=== PATIENT | female | born 1970 | race Caucasian/White ===

== ENCOUNTER 2017-10-19 14:03 | Observation (INO) ==
--- NOTE | 2017-10-19 14:31 | Emergency Department Note ---
Disposition Clinical Impression: Chest pain Qualifiers: Chest pain type: unspecified Qualified Code(s): R07.9 - Chest pain, unspecified Disposition: Admitted As Inpatient Condition: Fair Time of Disposition: 19:06 Chest Pain HPI - General Chief Complaint: ED Chest Pain Stated Complaint: CP Time Seen by Provider: 10/19/17 14:06 Source: patient Mode of arrival: ambulatory Limitations: no limitations Vital Signs Reviewed: Yes Nursing Notes Reviewed: Yes - History of Present Illness HPI Narrative: Patient is a 47-year-old female who presents to [facility] ED with a chief complaint of chest pain since 11:30a.m. She was sent over from [facility] with concern for STEMI. STEMI alert was canceled prior to patient's arrival to our emergency department. Upon evaluation, patient states she still has dull and sharp chest pain 8 out of 10. This is reproducible upon palpation. Patient states she had open heart surgery at the age of 4 and had a pig valve replaced. She also states she had a minor heart attack approximately 3 years ago. No stents were needed at that time. Patient is a nonsmoker. Denies any nausea, vomiting, recent illnesses. No difficulty breathing, problems with urination or bowel movements. Pt complaint: chest pain Onset (ago): hour(s) Duration: constant Onset: during rest Pain Location: left chest, epigastric Severity: severe Severity scale (1-10): 8 Quality: heaviness, sharp Pain Radiation: none Improves with: nothing Worsens with: nothing Associated symptoms: Denies: nausea, vomiting, dyspnea, syncope, fever Treatments prior to arrival chest pain: aspirin, nitroglycerin - Related Data Home Medications Medication Instructions Recorded Confirmed Aspirin [Adult Low Dose Aspirin EC] 81 mg PO DAILY 09/26/15 10/19/17 BuPROPion [Wellbutrin] 75 mg PO DAILY 10/19/17 10/19/17 Calcium Carbonate/Vitamin D3 1 each PO DAILY 10/19/17 10/19/17 [Calcium 500-Vit D3 200 Tablet] Medroxyprogesterone Acetate 150 mg IM [id number] 10/19/17 10/19/17 [DEPO-Provera] Metoprolol XL (24 HR) Succ [Toprol 12.5 mg PO DAILY 10/19/17 10/19/17 XL] Omeprazole [PriLOSEC] 20 mg PO DAILY 10/19/17 10/19/17 Sertraline [Zoloft] 100 mg PO BID 10/19/17 10/19/17 Allergies Allergy/AdvReac Type Severity Reaction Status Date / Time codeine Allergy Nausea Verified 12/10/16 19:14 Penicillins Allergy Nausea Verified 12/10/16 19:14 acetaminophen [From Tylenol] AdvReac Nausea/Hive Verified 10/19/17 17:03 s All systems ED: reviewed and negative except as stated. 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) Psychiatric history: Reports: anxiety, bipolar, depression CHILD DAY CARE PROVIDER history: Reports: no CHILD DAY CARE PROVIDER history - Social History Smoking Status: Never smoker Alcohol use: Reports: occasionally Drug use: Reports: none Physical Exam - General General appearance: alert, in no apparent distress - Head Head exam: atraumatic, normocephalic, normal inspection - Eye Eye exam: Present: normal appearance, EOMI - ENT ENT exam: normal exam, normal oropharynx, mucous membranes moist - Neck Neck exam: Present: normal inspection, full ROM, trachea midline - Chest Chest inspection: Present: normal inspection, symmetric chest wall rise, tenderness - Respiratory Respiratory exam: Present: normal lung sounds bilaterally - Cardiovascular Cardiovascular exam: Present: regular rate, normal rhythm, normal heart sounds - Abdominal Exam Abdominal exam: Present: soft, tenderness. Absent: distention, guarding, rebound, rigidity Abdominal tenderness: Present: epigastrium, moderate - Extremities Exam Extremities exam: Present: normal inspection, full ROM. Absent: tenderness, pedal edema - Back Exam Back exam: Present: normal inspection, full ROM. Absent: tenderness - Neurological Exam Neurological exam: Present: alert - Psychiatric Psychiatric exam: Present: normal affect, normal mood - Skin Skin exam: Present: warm, dry, intact, normal color Course Course Narrative: Patient seen and examined. Due to the sharp sudden nature of her pain, decision was made to order a CTA of the chest and abdomen/pelvis to rule out aortic dissection. Heparin and nitroglycerin drip were stopped upon patient's arrival to the emergency department. Motrin was given to help with her headache. - Reevaluation(s) Reevaluation #1: CTA of the chest, abdomen and pelvis negative for any acute findings. Patient continues to have 8 out of 10 chest pain. I discussed the case with gps navigation installer Dr. Lindo who states she does not feel there is any intervention to do at this time. Goal would be to treat her pain. I restarted the nitroglycerin drip. We will repeat a troponin level. I discussed this case with hospitalist Dr. Leo who has accepted patient for admission. Time: 19:05 Vital Signs Temperature 98.6 F 10/19/17 14:04 Pulse Rate 81 10/19/17 14:04 Respiratory Rate 16 10/19/17 14:04 Blood Pressure 127/75 10/19/17 14:04 O2 Sat by Pulse Oximetry 100 10/19/17 14:04 Temperature 98.6 F 10/19/17 14:04 Pulse Rate 89 10/19/17 19:00 Respiratory Rate 16 10/19/17 19:00 Blood Pressure 115/73 10/19/17 19:00 O2 Sat by Pulse Oximetry 98 10/19/17 19:00 Oxygen Delivery Oxygen Delivery Room Air Chest Pain - Medical Records Medical records reviewed: Yes I reviewed the patient's medical records. - Lab Data Lab results reviewed: Yes I reviewed the patient's lab results. - Radiology Data Radiology results reviewed: Yes I reviewed the patient's radiology results. Abdomen/Pelvis CTA 10/19/17 14:43 IMPRESSION: No CT evidence of aortic dissection. No acute intrathoracic nor abdominal abnormality. At least moderate wall thickening and increased mucosal enhancement of the urinary bladder and prominence of the cervix which is hypervascular as well. Correlation for cystitis and/or cervicitis is recommended. Follow-up to exclude neoplasm, particularly of the cervix, is recommended. D/ / Lakia Baron Cha, MD / Lakia Baron Cha, MD Interpreting Provider: Lakia Baron Cha, MD Chest CTA 10/19/17 14:43 IMPRESSION: No CT evidence of aortic dissection. No acute intrathoracic nor abdominal abnormality. At least moderate wall thickening and increased mucosal enhancement of the urinary bladder and prominence of the cervix which is hypervascular as well. Correlation for cystitis and/or cervicitis is recommended. Follow-up to exclude neoplasm, particularly of the cervix, is recommended. D/ / Lakia Baron Cha, MD / Lakia Baron Cha, MD Interpreting Provider: Lakia Baron Cha, MD - EKG Data EKG attestation: Yes I reviewed and interpreted this EKG. EKG results narrative: EKG done at 1412 shows normal sinus rhythm with a rate of [address] elevation or depression. Right bundle branch block present. Inverted T waves in leads V1 and V2. Left axis deviation. Appears unchanged from prior EKG done 09/30/2015. Heart Score - Score History: Moderately Suspicious EKG: Non Specific repolarisation Disturbance Age: 45-65 Risk Factors: 1-2 risk factors Troponin: Less than normal limit HEART Score Total: 4
[2017-10-19] MEDS: Acetaminophen 325 MG TABLET PO ONE ×2 (15:10→15:30)
[2017-10-19] MEDS ORDERED: Ibuprofen 800 MG TABLET PO ONE (15:11)
--- NOTE | 2017-10-19 16:58 | Emergency Department Note ---
START Narrative - START START: I examined this patient and my medical decision-making was reviewed with the Resident Physician. I agree with the documented findings, disposition and treatment plan as described except to the extent set forth below. 47 year old stuart presents to the ED from [place] as a cancelled STEMI alert. Her chest pain started around 1130 today and it radiates into her back with nausea, diaphoresis, nad exertiona ldyspne althouhg patient does not have any risk factors for CAD. HEr last sstress test was movre than 5 years ago and no history of cardaic catherization. CTA chest /abdome to rule out PE and dissection. WE will admit to medicine once ruled out.
[2017-10-19] MEDS ORDERED: Nitroglycerin 25 MG/250 ML INFUS..BTL IVC SCH (17:15)
[2017-10-19] MEDS ORDERED: 0.9 % Sodium Chloride 1,000 ML ONE (17:50)
[2017-10-19] MEDS ORDERED: *HR* Morphine 2 MG/ML SYRINGE IVP ONE (18:46)
--- NOTE | 2017-10-19 21:01 | Internal Med History&Physical ---
<Sinan Latif P - Last Filed: 10/19/17 23:50> Date of Encounter: 10/19/17 Internal Medicine - H&P: HPI History of present illness: Ms. Willis is a 47 year old female Internal Medicine - H&P: Meds Aspirin [Adult Low Dose Aspirin EC] 81 mg PO DAILY 09/26/15 [History] BuPROPion [Wellbutrin] 75 mg PO DAILY 10/19/17 [History] Calcium Carbonate/Vitamin D3 [Calcium 500-Vit D3 200 Tablet] 1 each PO DAILY [History] Medroxyprogesterone Acetate [DEPO-Provera] 150 mg IM [id number] 10/19/17 [History] Metoprolol XL (24 HR) Succ [Toprol XL] 12.5 mg PO DAILY 10/19/17 [History] Omeprazole [PriLOSEC] 20 mg PO DAILY 10/19/17 [History] Sertraline [Zoloft] 100 mg PO BID 10/19/17 [History] 3 Allergy/AdvReac Type Severity Reaction Status Date / Time codeine Allergy Nausea Verified 12/10/16 19:14 Penicillins Allergy Nausea Verified 12/10/16 19:14 acetaminophen [From Tylenol] AdvReac Nausea/Hive Verified 10/19/17 17:03 s All Systems PM: A 10-system review of systems was performed and is negative for pertinent findings except as documented above in the HPI. - Constitutional Vitals: Temp Pulse Resp BP Pulse Ox 98.8 F 84 17 111/70 98 10/19/17 20:24 10/19/17 20:24 10/19/17 20:24 10/19/17 20:24 10/19/17 20:29 Internal Med - H&P Results - Labs Labs: Cardiac Enzymes 10/19/17 Range/Units 18:57 Troponin I < 0.03 (< 0.04) ng/mL - Attending Attestation I examined this patient and my medical decision-making was reviewed with the Resident Physician. I agree with the documented findings, disposition and treatment plan as described except to the extent set forth below. I have examined this patient in person. This patient was examined before midnight. I agree with the assessment and plan drawn by the resident physician. Patient needs cardiac evaluation tomorrow. If cardiac workup is negative then please consider outpatient EGD. <Latha Mcclendon - Last Filed: 10/20/17 06:07> Date of Encounter: 10/20/17 Time of Encounter: 20:00 Assessment and Plan (1) Chest pain Current visit: Yes Status: Acute Troponin <0.03 initially. EKG shows sinus rhythm with RBB, no acute ST elevations or depressions--EKG similar to previous done 09/30/15. Chest CTA negative for aortic dissection and for acute intrathoracic abnormalities. [place] CXR negative for acute cardiopulmonary processes, no pleural effusion or pneumothorax. MARRY risk score of 1 for UA/NSTEMI. HEART score of 3, low risk for adverse cardiac event. Currently on nitroglycerin drip. -Trend troponins q6hr -CBC and BMP morning labs -Repeat CXR to rule out pulmonary effusion, pulmonary edema -Pharmacologic stress test pending -Echocardiogram pending -Continue ASA and beta hal; statin started Qualifiers: Chest pain type: other chest pain Qualified Code(s): R07.89 - Other chest pain; R07.8 - Other chest pain (2) DVT prophylaxis Current visit: Yes Status: Acute Heparin 5,000 units SubQ q12h Internal Medicine - H&P: HPI Chief complaint: abdominal pain Admitted From: Emergency Dept History of present illness: Ms. Willis is a 47 year old female with PMH of [place] without cath or stent placement, congenital heart disease, valvular heart disease, and TIA x4 who was transferred from [place] as a STEMI after presenting with chest pain (STEMI alert cancelled prior to arrival at [facility] ED). Patients chest pain, described as stabbing and pressure-like, began shortly after an episode of sharp pain in lower abdomen around 11:30 AM after walking from kitchen; chest pain located substernally and in left chest. Chest pain was not worse with exertion and was relieved with rest; nitroglycerin wasnt helpful. EKG negative for acute ST elevation or depression and shows RBBB, appears unchanged from previous EKG on . CXR done at [place] negative for acute cardiopulmonary processes. Chest CTA negative for acute intrathoracic abnormality and no evidence of aortic dissection; CTA abdomen pelvis negative for acute intrabdominal abnormality. Patient denies associated shortness of breath, heart palpitations, diarrhea, or constipation; admits to diaphoresis, nausea, left arm numbness and tingling, and 3 episodes emesis. Past Med Surg Social Fam HX - Past Medical History Source: patient Medical history: arthritis, coronary artery disease, myocardial infarction, syncope, TIA (x4), valvular heart disease, other (congenital heart disease) Psychiatric history: anxiety, bipolar, depression - Past Surgical History Surgical History: cholecystectomy, other (D&C) - Social History Smoking Status: Never smoker Smokeless Tobacco Status: No Alcohol use: occasionally Drug use: none All Systems PM: A 10-system review of systems was performed and is negative for pertinent findings except as documented above in the HPI. - Constitutional Constitutional: no fever(s) - Cardiovascular Cardiovascular ROS IM: as per HPI, chest pain (stabbing, pressure), diaphoresis , no dyspnea, no edema, no palpitations - Respiratory Respiratory: no cough, no dyspnea, no wheezing - Gastrointestinal Gastrointestinal: abdominal pain (sharp pain, lower quadrants), nausea, vomiting (3 episodes), no change in bowel habits, no coffee ground emesis, no constipation, no diarrhea - Neurological Neurological ROS: headache(s) - Constitutional Vitals: Temp Pulse Resp BP Pulse Ox 98.8 F 84 17 111/70 98 10/19/17 20:24 10/19/17 20:24 10/19/17 20:24 10/19/17 20:24 10/19/17 20:29 General appearance: Present: A&O X 3, no acute distress, answers questions appropriately - Head Head exam: Present: atraumatic, normocephalic - Eye Eye exam: Present: EOMI, PERRL - Neck Neck exam general surgery: Present: full ROM, supple - Respiratory Respiratory exam: Present: CTAB. Absent: chest wall tenderness - Cardiovascular Cardiovascular exam: Present: RRR, +S1, +S2 Additional comments: no murmur - GI/Abdominal GI/Abdominal exam: Present: normal bowel sounds, soft, no peritoneal signs. Absent: distended, tenderness - Extremities Exam Extremities exam: Present: warm. Absent: pedal edema Additional comments: DP pulses present and equal - Back Exam Back exam: Present: normal inspection - Neurological Exam Neurological exam: Present: alert, oriented X3, no focal deficits Internal Med - H&P Results - Labs CBC & Chem 7: 10/20/17 03:11 10/20/17 01:32 Labs: Cardiac Enzymes 10/19/17 Range/Units 18:57 Troponin I < 0.03 (< 0.04) ng/mL
[2017-10-20] MEDS: Ibuprofen 400 MG TABLET PO PRN ×3 (01:50→21:16)
[2017-10-20 02:01] LABS: BUN/Creatinine Ratio 20 (6-26); Blood Urea Nitrogen 10 mg/dL (6-20); Calcium 8.4 mg/dL (8.6-10.3); Carbon Dioxide 20 mEq/L (23-29); Chloride 112 mEq/L (98-107); Glucose 96 mg/dL (70-105); Osmolality,Calculated 287 (280-300); Potassium 3.5 mEq/L (3.5-5.1); Sodium 139 mEq/L (136-145); eGFR For African Americans > 60 (> 60); eGFR For Non-African Americans > 60 (> 60)
[2017-10-20 03:36] LABS: Hematocrit 33.7 % (35.3-44.9); Hemoglobin 11.3 g/dL (11.5-15.4); Mean Corpuscular HGB Conc 33.5 g/dL (31.6-35.5); Mean Corpuscular Hemoglobin 30.3 pg (28.0-33.3); Mean Corpuscular Volume 90.3 fL (83.0-100.0); Mean Platelet Volume 10.5 fL (9.4-12.4); Platelet Count 186 K/mcL (140-400); Red Blood Count 3.73 M/mcL (3.82-4.97); Red Cell Distribution Width 12.2 % (11.5-14.5)
[2017-10-20] MEDS ORDERED: Ketorolac 15 MG/ML VIAL IVP ONE (06:09)
[2017-10-20] MEDS: *HR* Heparin 5,000 UNIT/ML VIAL SQ SCH ×2 (06:24→18:18)
--- NOTE | 2017-10-20 09:19 | Electrocardiograph Report ---
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
[2017-10-20] MEDS: Aspirin 81 MG TAB.CHEW PO SCH (10:24)
--- NOTE | 2017-10-20 15:22 | Cardiology Consult Note ---
<Diana Dewey - Last Filed: 10/20/17 15:16> Date of Encounter: 10/20/17 Time of Encounter: 15:00 Assessment and Plan (1) Chest pain Current Visit: Yes Status: Acute Per cardiology: -Admitted after one episode of chest pain at rest. Patient states this was during stressful event with children fighting. -Denies exertional symptoms. -Denies current chest pain. -ECG with RBBB noted, unchanged from previous. -Troponins negative x3. -Stress 09/2015 negative. -TTE 09/2015 with LVEF 65%, no segmental wall motion abnormalities noted. -On asa, statin. -Will add low dose beta hal. -Anticipate cardiology sign off. -Can consider outpatient ischemic work up for recurrence of symptoms. Qualifiers: Chest pain type: other chest pain Qualified Code(s): R07.89 - Other chest pain; R07.8 - Other chest pain (2) History of congenital heart disease Current Visit: No Status: Chronic Per cardiology: -Patient has a history of aortic septal defect and pulmonic valve stenosis. As a child, she underwent repair of ASD, pulmonic valvotomy and patch repair of resected infundibulum. -Last TTE with LVEF 65%, moderate diastolic dysfunction, mildly dilated left atrium, mildly calcified mitral valve leaflets, mild anterior mitral leaflet prolapse, mild MR, no segmental wall motion abnormalities. -Patient follows with [facility]. (3) Anemia Current Visit: Yes Status: Acute Per cardiology: -Hemoglobin 11.3. -Baseline HGB 13-15s. -Management per primary service. Qualifiers: Anemia type: unspecified type Qualified Code(s): D64.9 - Anemia, unspecified Discussion w patient/family: The assessment and plan as outlined above was discussed with the patient who expressed understanding and agreement. All questions were answered. Thank you for involving us in the care of your patient. Please call with any questions. Discussed and reviewed with . History of Present Illness Consult date: 10/20/17 Requesting physician: Ana Lilia Foster Consult reason: chest pain Chief complaint: abdominal pain, chest pain History of present illness: Ms. Willis is a 47 year old female with a relevant past medical history of congenital heart disease, diastolic dysfunction, seizures, anxiety, depression. Patient presented to [place] [facility] with complaints of abdominal pain , diaphoresis, and chest pain. Patient states that symptoms started at rest while her kids were fighting. Patient states prior to this single episode yesterday, had not been having any symptoms. Denies exertional chest pain or shortness of breath. Denies increased fatigue. Past Med Surg Social Fam HX - Past Medical History Attestation: Yes The following information was validated with the patient. Source: patient, old records reviewed Medical history: arthritis, myocardial infarction, syncope, TIA (x4), valvular heart disease, other (congenital heart disease) Psychiatric history: anxiety, bipolar, depression - Past Surgical History Surgical History: cholecystectomy, other (D&C) - Social History Smoking Status: Never smoker Smokeless Tobacco Status: No Alcohol use: occasionally Drug use: none Medications and Allergies Aspirin [Adult Low Dose Aspirin EC] 81 mg PO DAILY 09/26/15 [History] BuPROPion [Wellbutrin] 75 mg PO DAILY 10/19/17 [History] Calcium Carbonate/Vitamin D3 [Calcium 500-Vit D3 200 Tablet] 1 each PO DAILY [History] Medroxyprogesterone Acetate [DEPO-Provera] 150 mg IM [id number] 10/19/17 [History] Metoprolol XL (24 HR) Succ [Toprol XL] 12.5 mg PO DAILY 10/19/17 [History] Omeprazole [PriLOSEC] 20 mg PO DAILY 10/19/17 [History] Sertraline [Zoloft] 100 mg PO BID 10/19/17 [History] 3 Allergy/AdvReac Type Severity Reaction Status Date / Time codeine Allergy Nausea Verified 12/10/16 19:14 Penicillins Allergy Nausea Verified 12/10/16 19:14 acetaminophen [From Tylenol] AdvReac Nausea/Hive Verified 10/19/17 17:03 s All Systems Review: A 10-system review of systems was performed and is negative for pertinent findings except as documented above in the HPI. - Cardiovascular Cardiovascular: as per HPI, chest pain at rest, diaphoresis - Gastrointestinal Gastrointestinal: abdominal pain Physical Examination Vital Signs Temperature 98.6 F 10/19/17 14:04 Pulse Rate 81 10/19/17 14:04 Respiratory Rate 16 10/19/17 14:04 Blood Pressure 127/75 10/19/17 14:04 O2 Sat by Pulse Oximetry 100 10/19/17 14:04 Temperature 98.9 F 10/20/17 10:56 Pulse Rate 67 10/20/17 10:56 Respiratory Rate 16 10/20/17 10:56 Blood Pressure 110/67 10/20/17 10:56 O2 Sat by Pulse Oximetry 96 10/20/17 10:56 Oxygen Delivery Oxygen Delivery Room Air General: Conversant, No Apparent Distress HEENT: Atraumatic, Normocephaly, Mucus Membranes Moist Neck: No JVD, Normal carotid pulses Cardiac: Reg Rate and Rhythm, Normal S1 and S2, No Murmur Lungs: Normal Breath Sounds, No Wheeze, Rales, Rhonchi Neuro: Alert and responsive, No focal deficits noted Abdomen: Soft, Non-Tender Skin: No rashes noted on visualized skin Musculoskeletal: No Chest Wall Tenderness Extremities: No Clubbing, No Cyanosis, No Edema, Normal Pulses Results 10/20/17 03:11 10/20/17 01:32 Lab Results Impressions Abdomen/Pelvis CTA 10/19/17 14:43 IMPRESSION: No CT evidence of aortic dissection. No acute intrathoracic nor abdominal abnormality. At least moderate wall thickening and increased mucosal enhancement of the urinary bladder and prominence of the cervix which is hypervascular as well. Correlation for cystitis and/or cervicitis is recommended. Follow-up to exclude neoplasm, particularly of the cervix, is recommended. D/ / Lakia Baron Cha, MD / Lakia Baron Cha, MD Interpreting Provider: Lakia Baron Cha, MD Chest CTA 10/19/17 14:43 IMPRESSION: No CT evidence of aortic dissection. No acute intrathoracic nor abdominal abnormality. At least moderate wall thickening and increased mucosal enhancement of the urinary bladder and prominence of the cervix which is hypervascular as well. Correlation for cystitis and/or cervicitis is recommended. Follow-up to exclude neoplasm, particularly of the cervix, is recommended. D/ / Lakia Baron Cha, MD / Lakia Baron Cha, MD Interpreting Provider: Lakia Baron Cha, MD Chest X-Ray 10/20/17 00:23 IMPRESSION: No acute cardiopulmonary abnormality. D/ / Mike Moss MD / Mike Moss MD Interpreting Provider: Mike Moss MD Active Medications Aspirin (Aspirin) 81 mg PO DAILY IRENE Stop: 04/21/18 09:01 Last Admin: 10/20/17 10:24 Dose: 81 mg Heparin Sodium (Porcine) (Heparin) 5,000 unit SQ Q12HCO IRENE Stop: 04/21/18 06:01 Last Admin: 10/20/17 06:24 Dose: 5,000 unit Ibuprofen (Motrin) 400 mg PO Q4HR PRN PRN Reason: Headache Stop: 04/20/18 23:06 Last Admin: 10/20/17 14:49 Dose: 400 mg Rosuvastatin Calcium (Crestor) 20 mg PO HS IRENE Stop: 04/21/18 01:01 Last Admin: 10/20/17 01:50 Dose: 20 mg Laboratory Tests 09/30/16 10/19/17 10/19/17 14:20 12:50 18:57 Hgb 15.6 H 14.1 Creatinine Troponin I < 0.03 10/20/17 10/20/17 10/20/17 01:32 01:32 03:11 Hgb 11.3 L D Creatinine 0.51 L Troponin I < 0.03 10/20/17 06:59 Hgb Creatinine Troponin I < 0.03 - Imaging and Cardiology Chest Xray: report reviewed Stress Test: report reviewed Echo: pending, report reviewed - EKG Interpretation EKG results cardiology: personally reviewed (ECG with SR, RBBB.), other ( Telemetry reviewed with average HR previous 12 hours noted to be 71, SR. PACs noted. Short runs of atrial tachycardia noted.) Consult Discharge Plan - Plan Referrals: Jayden Regalado CARE PROVIDER [Primary Care Provider] - <Malu Lindo - Last Filed: 10/20/17 17:24> Date of Encounter: 10/20/17 - Attending Attestation I examined this patient and my medical decision-making was reviewed with the CARE PROVIDER. I agree with the documented findings, disposition and treatment plan as described. Ms. Willis presents with atypical chest pain in setting of a stressful event. She has been chest pain free since admission. ECG unchanged from prior - no acute findings. Troponin negative x3. TTE showed normal LVEF. No further cardiac testing is warranted at this time. Of note, Hgb decreased from 14.1 to 11.3 - will defer management to primary team. Patient denies bleeding events or heavy menstruation. Will sign off. Recommend follow up as outpatient. Assessment and Plan Discussion w patient/family: The assessment and plan as outlined above was discussed with the patient and/or family members who expressed understanding and agreement. All questions were answered. Thank you for involving us in the care of your patient. Please call with any questions. History of Present Illness History of present illness: Ms. Willis is a 47 year old female All Systems Review: A 10-system review of systems was performed and is negative for pertinent findings except as documented above in the HPI. Physical Examination Vital Signs, Last 4 Hours Temp Pulse Resp BP Pulse Ox 10/20/17 16:32 98.4 F 67 16 119/70 98 Results 10/20/17 03:11 10/20/17 01:32 Lab Results 10/19/17 10/20/17 10/20/17 18:57 01:32 01:32 WBC Hgb Hct Plt Count Sodium 139 Potassium 3.5 Chloride 112 H Carbon Dioxide 20 L BUN 10 Creatinine 0.51 L Glucose 96 Calcium 8.4 L Troponin I < 0.03 < 0.03 10/20/17 10/20/17 10/20/17 03:11 06:59 15:01 WBC 5.9 Hgb 11.3 L D Hct 33.7 L Plt Count 186 Sodium Potassium Chloride Carbon Dioxide BUN Creatinine Glucose Calcium Troponin I < 0.03 < 0.03
--- NOTE | 2017-10-20 16:16 | Internal Med Progress Note ---
Date of Encounter: 10/20/17 Time of Encounter: 16:12 - Assessment and plan (1) Chest pain Current Visit: Yes Status: Acute Assessment and plan: transferred from OSH with chest pressure. Serial troponin negative. EKG shows sinus rhythm with RBB, no acute ST elevations or depressions--EKG similar to previous done 09/30/15. Chest CTA negative for aortic dissection and for acute intrathoracic abnormalities. Evaluated by Cardiology suspects chest pain possibly secondary to stress/anxiety as chest pain occurred after an argument. Continue home ASA, statin. Low-dose BB added per cardiology. Echo pending. Qualifiers: Chest pain type: other chest pain Qualified Code(s): R07.89 - Other chest pain; R07.8 - Other chest pain (2) History of congenital heart disease Current Visit: No Status: Chronic Assessment and plan: hx aortic septal defect and pulmonic valve stenosis. S/p ASD, pulmonic valvotomy and patch repair of resected infundibulum at 4 years of age. (3) DVT prophylaxis Current Visit: Yes Status: Acute Assessment and plan: heparin - Subjective Interval history: Seen and examined at bedside. Patient is new to me, information obtained from chart review and patient report. Patient says she feels significantly better, no further chest pain or pressure. No shortness of breath. She complains of general weakness and malaise otherwise has no complaints. - Constitutional Vitals: Temp Pulse Resp BP Pulse Ox 98.9 F 67 16 110/67 96 10/20/17 10:56 10/20/17 10:56 10/20/17 10:56 10/20/17 10:56 10/20/17 10:56 General appearance: Present: A&O X 3, no acute distress, answers questions appropriately - Head Head exam: Present: atraumatic, normocephalic - Eye Eye exam: Present: PERRL, conjuntiva pink, sclera anicteric Pupils: Present: PERRL - Neck Neck exam general surgery: Present: supple, trachea midline. Absent: lymphadenopathy - Respiratory Respiratory exam: Present: CTAB. Absent: accessory muscle use, rales, rhonchi, wheezes - Cardiovascular Cardiovascular exam: Present: RRR, +S1, +S2. Absent: diastolic murmur, gallop, rubs, systolic murmur - GI/Abdominal GI/Abdominal exam: Present: normal bowel sounds, soft, no peritoneal signs. Absent: distended, tenderness - Extremities Exam Extremities exam: Present: warm, radial pulses palpable and symmetrical. Absent : calf tenderness, cyanotic, pedal edema - Neurological Exam Neurological exam: Present: CN II-XII intact, oriented X3, no focal deficits. Absent: pronater drift, facial droop, speech deficit - Skin Skin exam: Present: dry, intact Internal Medicine: Result - Labs CBC & Chem 7: 10/20/17 03:11 10/20/17 01:32 Labs: Short CBC 10/20/17 Range/Units 03:11 WBC 5.9 (4.3-11.1) K/mcL Hgb 11.3 L D (11.5-15.4) g/dL Hct 33.7 L (35.3-44.9) % Plt Count 186 (140-400) K/mcL BMP 10/20/17 01:32 Sodium 139 Potassium 3.5 Chloride 112 H Carbon Dioxide 20 L BUN 10 Creatinine 0.51 L Glucose 96 Calcium 8.4 L Cardiac Enzymes 10/20/17 10/20/17 10/20/17 Range/Units 01:32 06:59 15:01 Troponin I < 0.03 < 0.03 < 0.03 (< 0.04) ng/mL - Impressions Impressions Chest X-Ray 10/20/17 00:23 IMPRESSION: No acute cardiopulmonary abnormality. D/ / Mike Moss MD / Mike Moss MD Interpreting Provider: Mike Moss MD Echocardiogram 10/20/17 00:23 Impressions: LVEF 60-65%. Normal LV chamber size, wall thickness and function. Mild left ventricular diastolic dysfunction. Atypical septal motion consistent with bundle branch block. Normal right ventricular structure and function. Mild pulmonic regurgitation. No evidence of pulmonary hypertension. Left Ventricular Wall Motion: Rest Echo Findings All wall segments showed normal motion. Findings: Study Quality * Technically adequate exam. ECG Findings * Sinus rhythm with BBB. Left Ventricle * LVEF 60-65%. * Normal LV chamber size, wall thickness and function. * Mild left ventricular diastolic dysfunction. * Atypical septal motion consistent with bundle branch block. Right Ventricle * Normal right ventricular structure and function. Left Atrium * Normal left atrial size. Right Atrium * Normal right atrial size. Interatrial Septum * No evidence of PFO by color Doppler. Aortic Valve * Trileaflet aortic valve. * Mildly sclerotic aortic valve leaflets. * No aortic regurgitation. * No aortic stenosis. Mitral Valve * Normal mitral valve structure and function. * No mitral regurgitation. * No mitral stenosis. Tricuspid Valve * Normal tricuspid valve structure and function. * Trace tricuspid regurgitation. * No evidence of pulmonary hypertension. Pulmonic Valve * Normal pulmonic valve structure. * Mild pulmonic regurgitation. Aorta * Normally sized aortic root. Pericardium * The pericardium appears normal. IVC * Normal IVC dimensions and inspiratory collapse. Pulmonary Artery * Normal visualized portions of the main pulmonary artery. - VTE Documentation of Mechanical Device: Intermittent pneumatic compression device Consult Discharge Plan - Plan Referrals: Jayden Regalado PATIENT SERVICES COORDINATOR [Primary Care Provider] -
[2017-10-21 06:18] VITALS: BP 101/62
[2017-10-21] MEDS: *HR* Heparin 5,000 UNIT/ML VIAL SQ SCH (06:21)
[2017-10-21] MEDS: Aspirin 81 MG TAB.CHEW PO SCH (08:33)
[2017-10-21 10:45] LABS: Hematocrit 36.8 % (35.3-44.9); Hemoglobin 12.7 g/dL (11.5-15.4); Mean Corpuscular HGB Conc 34.5 g/dL (31.6-35.5); Mean Corpuscular Hemoglobin 30.2 pg (28.0-33.3); Mean Corpuscular Volume 87.4 fL (83.0-100.0); Mean Platelet Volume 10.6 fL (9.4-12.4); Platelet Count 196 K/mcL (140-400); Red Blood Count 4.21 M/mcL (3.82-4.97); Red Cell Distribution Width 12.1 % (11.5-14.5)
--- NOTE | 2017-10-22 14:45 | Discharge Summary ---
Date of Encounter: 10/21/17 Time of Encounter: 15:00 - Discharge Diagnosis (1) Chest pain Priority: Primary Status: Resolved Comments: transferred from OSH with chest pressure. Serial troponin negative. EKG shows sinus rhythm with RBB, no acute ST elevations or depressions--EKG similar to . Chest CTA negative for aortic dissection and for acute intrathoracic abnormalities. TTE with preserved EF. Evaluated by Cardiology suspects chest pain possibly secondary to stress/anxiety as chest pain occurred after an argument. Continue home ASA, statin. Low-dose BB added per cardiology. Chest pain resolved at discharge. Follow-up with primary [facility] Qualifiers: Chest pain type: other chest pain Qualified Code(s): R07.89 - Other chest pain; R07.8 - Other chest pain (2) History of congenital heart disease Priority: Secondary Status: Chronic Comments: hx aortic septal defect and pulmonic valve stenosis. S/p ASD, pulmonic valvotomy and patch repair of resected infundibulum at 4 years of age. - Discharge Medications Home Medications: Aspirin [Adult Low Dose Aspirin EC] 81 mg PO DAILY 09/26/15 [History] BuPROPion [Wellbutrin] 75 mg PO DAILY 10/19/17 [History] Calcium Carbonate/Vitamin D3 [Calcium 500-Vit D3 200 Tablet] 1 each PO DAILY [History] Medroxyprogesterone Acetate [Depo-Provera] 150 mg IM [id number] 10/19/17 [History] Metoprolol XL (24 HR) Succ [Toprol Xl] 12.5 mg PO DAILY 10/19/17 [History] Omeprazole [PriLOSEC] 20 mg PO DAILY 10/19/17 [History] Sertraline [Zoloft] 100 mg PO BID 10/19/17 [History] Allergies/Adverse Reactions: 3 Allergy/AdvReac Type Severity Reaction Status Date / Time codeine Allergy Nausea Verified 12/10/16 19:14 Penicillins Allergy Nausea Verified 12/10/16 19:14 acetaminophen [From Tylenol] AdvReac Nausea/Hive Verified 10/19/17 17:03 s Procedures/tests Complete & Pending: Procedures Performed prior 72 hours Category Date Time Status EV echocardiogram Routine Y 10/20/17 00:23 Completed Date of admission: 10/19/17 18:56 Primary care physician: Jayden Regalado CNP Consults: 10/20/17 09:57 Consult to Cardiology [CONS] Routine Comment: Consulting Provider: Cardiology Yenny Reason for Consult: chest pain Call Completed: Yes Discharging clinician: Ana Lilia Foster Anticipated date of discharge: 10/21/17 - Patient Status Disposition: Home, Self-Care Condition: Good Functional capacity at discharge: independent ambulation Overall status at discharge: patient is back to baseline - Discharge Instructions Instructions: Chest Pain (DC) Follow Up With: Jayden Regalado CNP [Primary Care Provider] - 10/26/17 3:00 pm - Diet and Activity Activity: increase activity as tolerated Interval History: Seen and examined at bedside. Says she feels better and wants to go home. No CP or SOB. Says she will follow-up with primary [facility]. Hospital course: See assessment and plan for hospital course - Time Spent with Patient Total time spent providing and/or coordinating discharge services: - Constitutional Vitals: Temp Pulse Resp BP Pulse Ox 98.0 F 69 15 101/62 98 10/21/17 06:13 10/21/17 06:13 10/21/17 06:13 10/21/17 06:13 10/21/17 06:13 General appearance: Present: A&O X 3, no acute distress, answers questions appropriately - Head Head exam: Present: atraumatic, normocephalic - Eye Eye exam: Present: PERRL, conjuntiva pink, sclera anicteric Pupils: Present: PERRL - Neck Neck exam general surgery: Present: supple, trachea midline. Absent: lymphadenopathy - Respiratory Respiratory exam: Present: CTAB. Absent: accessory muscle use, rales, rhonchi, wheezes - Cardiovascular Cardiovascular exam: Present: RRR, +S1, +S2, systolic murmur. Absent: diastolic murmur, gallop, rubs - GI/Abdominal GI/Abdominal exam: Present: normal bowel sounds, soft, no peritoneal signs. Absent: distended, tenderness - Extremities Exam Extremities exam: Present: warm, radial pulses palpable and symmetrical. Absent : calf tenderness, cyanotic, pedal edema - Neurological Exam Neurological exam: Present: CN II-XII intact, oriented X3, no focal deficits. Absent: pronater drift, facial droop, speech deficit - Skin Skin exam: Present: dry, intact - VTE Documentation of Mechanical Device: Intermittent pneumatic compression device
== END 2017-10-21 13:20 | disposition home or self-care (01) ==
LOC: 2NENU 14:03 → EMEROO 14:03 → 2NENU 19:42 → SUATTDRO 23:47
PROVIDERS: ADMIT Internal Medicine; ATTEND Internal Medicine

== ENCOUNTER 2019-08-02 11:59 | Observation (INO) ==
[2019-08-02] MEDS ORDERED: Ondansetron 4 MG/2 ML VIAL IVP PRN (14:46)
[2019-08-02] MEDS ORDERED: Naloxone 0.4 MG/ML INJ IVP PRN (14:46)
[2019-08-02] MEDS ORDERED: Metoprolol XL (24 HR) Succ 25 MG TAB.ER.24H PO SCH (14:49)
[2019-08-02] MEDS ORDERED: Nitroglycerin 0.4 MG TAB.SUBL SL PRN (14:49)
[2019-08-02 15:50] LABS: Amphetamine Screen,Urine Negative ng/mL (Cutoff=1000); Barbiturate Screen,Urine Negative ng/mL (Cutoff=200); Benzodiazepines Screen,Urine Negative ng/mL (Cutoff=200); Cannabinoid Screen,Urine Negative ng/mL (Cutoff = 50); Cocaine Screen,Urine Negative ng/mL (Cutoff= 300); Opiate Screen,Urine Negative ng/mL (Cutoff=300); Phencyclidine Screen,Urine Negative ng/mL (Cutoff=25)
[2019-08-02] MEDS ORDERED: Ibuprofen 400 MG TABLET PO ONE (19:37)
[2019-08-02] MEDS: *HR* Heparin 5,000 UNIT/ML VIAL SQ SCH (20:14)
[2019-08-03] MEDS: *HR* Heparin 5,000 UNIT/ML VIAL SQ SCH (05:27)
[2019-08-03 05:53] LABS: Basophils % 0.5 %; Eosinophils # 0.2 K/mcL (0.0-0.6); Eosinophils % 3.9 %; Hematocrit 37.9 % (35.3-44.9); Immature Granulocytes % 0.5 % (0-4); Lymphocytes # 1.6 K/mcL (0.6-4.6); Lymphocytes % 26.5 %; Mean Corpuscular HGB Conc 34.3 g/dL (31.6-35.5); Mean Corpuscular Hemoglobin 30.8 pg (28.0-33.3); Mean Corpuscular Volume 89.8 fL (83.0-100.0); Mean Platelet Volume 11.7 fL (9.4-12.4); Monocytes # 0.9 K/mcL (0.0-1.3); Monocytes % 14.6 %; Neutrophils # 3.3 K/mcL (1.6-8.9); Platelet Count 203 K/mcL (140-400); Red Blood Count 4.22 M/mcL (3.82-4.97); Red Cell Distribution Width 12.7 % (11.5-14.5); White Blood Count 6.2 K/mcL (4.3-11.1)
[2019-08-03 06:08] LABS: BUN/Creatinine Ratio 26 (6-26); Blood Urea Nitrogen 15 mg/dL (6-20); Carbon Dioxide 23 mEq/L (23-29); Chloride 106 mEq/L (98-107); Chol/HDL Ratio 3.3 (0-4.9); Cholesterol 156 mg/dL (< 200); Glucose 102 mg/dL (70-105); HDL Cholesterol 48 mg/dL (40-59); LDL Cholesterol,Calculated 93 mg/dL (0-99); Magnesium 2.1 mg/dL (1.6-2.6); Osmolality,Calculated 289 (280-300); Phosphorous 3.6 mg/dL (2.7-4.5); Potassium 3.9 mEq/L (3.5-5.1); Sodium 139 mEq/L (136-145); Triglycerides 76 mg/dL (< 150); eGFR For African Americans > 60 (> 60); eGFR For Non-African Americans > 60 (> 60)
[2019-08-03 08:05] VITALS: BP 100/59
[2019-08-03] MEDS ORDERED: FLUoxetine 20 MG CAPSULE PO SCH (09:00)
[2019-08-03] MEDS ORDERED: Aspirin Enteric Coated 81 MG Tablet PO SCH (09:00)
[2019-08-03] MEDS ORDERED: Metoprolol XL (24 HR) Succ 25 MG TAB.ER.24H PO SCH (09:00)
== END 2019-08-03 09:07 | disposition home or self-care (01) ==
LOC: 2ANU
PROVIDERS: ADMIT Internal Medicine; ATTEND Internal Medicine